=== PATIENT | female | born 1970 | race Hispanic/Latino ===

== ENCOUNTER 2019-08-13 18:05 | Emergency (ER) | payer MEDICARE, MEDICAID, OTHER | END 2019-08-13 19:00 | disposition home or self-care (01) | LOC: ERS 18:05 | DX: Z20.828 Contact with and (suspected) exposure to other viral communicable diseases (principal); J45.909 Unspecified asthma, uncomplicated; I10 Essential (primary) hypertension; E11.40 Type 2 diabetes mellitus with diabetic neuropathy, unspecified; Z79.84 Long term (current) use of oral hypoglycemic drugs; Z79.899 Other long term (current) drug therapy | CPT/HCPCS: 99283; U0003; 87635 ==

== ENCOUNTER 2020-12-10 00:32 | Observation (INO) | payer MEDICARE, MEDICAID ==
[2020-12-10] MEDS ORDERED: Aspirin Chewable 81 MG TAB ONE (01:04)
[2020-12-10 01:12] LABS: #Basophils 0.1 thou/uL (0.0-0.2); #Eosinphils 0.3 thou/uL (0.0-0.7); #Lymphocytes 3.8 thou/uL (1.20-3.40); #Monocytes 0.6 thou/uL (0.11-0.59); #Neutrophils 6.6 thou/uL (1.40-6.50); %Basophils 0.7 % (0.0-1.0); %Eosinophils 2.8 % (0.0-10.0); %Lymphocytes 33.4 % (21.0-51.0); %Monocytes 5.6 % (0.0-10.0); %Neutrophils 57.5 % (42.0-75.0); Hemoglobin 13.9 g/dL (12.0-16.0); Mean Corpuscular HGB CONC 34.9 g/dL (32.0-36.0); Mean Corpuscular Hemoglobin 32.5 pg (27.0-31.0); Mean Corpuscular Volume 93.2 fL (78.0-98.0); Mean Platelet Volume 9.5 fL (7.4-10.4); Platelet Count 303 thou/uL (130-400); RBC Distribution Width 11.9 % (11.5-14.5); Red Blood Cell (RBC) Count 4.26 mill/uL (4.20-5.40); White Blood Cell (WBC) Count 11.5 thou/uL (4.8-10.8)
[2020-12-10 01:33] LABS: ALT (SGPT) 24 U/L (8-55); AST (SGOT) 22 U/L (5-34); Alkaline Phosphatase 89 U/L (40-110); Anion Gap 17 mmol/L (10-20); BUN (Urea Nitrogen) 7 mg/dL (7.0-18.7); Bilirubin, Total 0.8 mg/dL (0.2-1.2); Calc. Creatinine Clearance 0 mL/min (70-130); Calcium 10.2 mg/dL (7.8-10.44); Carbon Dioxide 22 mmol/L (22-29); Chloride 94 mmol/L (98-107); Globulin 3.3 g/dL (2.4-3.5); Magnesium 1.4 mg/dL (1.6-2.6); Potassium 3.9 mmol/L (3.5-5.1); Protein, Total 7.3 g/dL (6.0-8.3); Sodium 129 mmol/L (136-145)
[2020-12-10 01:59] LABS: Glucose 622 mg/dL (70-105)
[2020-12-10] MEDS ORDERED: Magnesium 2 GM/50 ML BAG (IN WATER) ONE (02:17)
[2020-12-10] MEDS ORDERED: Insulin Regular 300 UNITS/3 ML VIAL ONE (02:17)
[2020-12-10] MEDS ORDERED: Ondansetron PF 4 MG/2 ML Vial IVP PRN (03:49)
[2020-12-10] MEDS ORDERED: Nitroglycerin 0.4 MG TAB (25 Tab Bottle) SL PRN ×2 (03:49→11:47)
[2020-12-10] MEDS ORDERED: Acetaminophen 325 MG TAB PO PRN (03:49)
[2020-12-10] MEDS ORDERED: Dextrose 50% Abboject 50 ML SYRINGE SLOW IVP PRN (03:49)
[2020-12-10] MEDS ORDERED: HumaLOG 300 UNITS/3 ML VIAL SC PRN ×2 (03:49)
[2020-12-10] MEDS ORDERED: Dextrose 5% in Water 1,000 ML IV PRN (03:49)
[2020-12-10 04:15] VITALS: BMI 31.4
[2020-12-10] MEDS: Sodium Chloride 0.9% 1,000 ML IV SCH ×2 (04:39→14:23)
[2020-12-10 04:56] LABS: #Basophils 0.1 thou/uL (0.0-0.2); #Eosinphils 0.2 thou/uL (0.0-0.7); #Monocytes 0.5 thou/uL (0.11-0.59); #Neutrophils 4.5 thou/uL (1.40-6.50); %Basophils 0.7 % (0.0-1.0); %Eosinophils 2.6 % (0.0-10.0); %Lymphocytes 42.5 % (21.0-51.0); %Monocytes 5.4 % (0.0-10.0); %Neutrophils 48.8 % (42.0-75.0); Hemoglobin 12.2 g/dL (12.0-16.0); Mean Corpuscular HGB CONC 34.2 g/dL (32.0-36.0); Mean Corpuscular Hemoglobin 31.4 pg (27.0-31.0); Mean Corpuscular Volume 91.8 fL (78.0-98.0); Mean Platelet Volume 9.1 fL (7.4-10.4); Platelet Count 257 thou/uL (130-400); RBC Distribution Width 11.9 % (11.5-14.5); Red Blood Cell (RBC) Count 3.88 mill/uL (4.20-5.40); White Blood Cell (WBC) Count 9.3 thou/uL (4.8-10.8)
[2020-12-10 04:59] LABS: Hemoglobin A1c 11.4 % (4.0-6.0)
[2020-12-10 05:24] LABS: Troponin I Less than 0.010 ng/mL (< 0.028)
[2020-12-10 05:48] LABS: Anion Gap 15 mmol/L (10-20); BUN (Urea Nitrogen) 6 mg/dL (7.0-18.7); Calc. Creatinine Clearance 114 mL/min (70-130); Calcium 9.3 mg/dL (7.8-10.44); Carbon Dioxide 22 mmol/L (22-29); Chloride 103 mmol/L (98-107); Glucose 337 mg/dL (70-105); Sodium 136 mmol/L (136-145)
[2020-12-10 07:50] LABS: Troponin I Less than 0.010 ng/mL (< 0.028)
[2020-12-10] MEDS ORDERED: Aspirin Chewable 81 MG TAB PO SCH (09:00)
[2020-12-10] MEDS ORDERED: Communication Order-Pharmacy FS SCH (10:30)
[2020-12-10] MEDS ORDERED: Midazolam HCl 2 mg/2 ml Vial ONE (11:04)
[2020-12-10] MEDS ORDERED: Fentanyl 100 MCG/2 ML VIAL ONE ×2 (11:04→11:54)
[2020-12-10] MEDS ORDERED: Sodium Chloride 0.9% 200 ML IV PRN (11:47)
[2020-12-10] MEDS ORDERED: Acetaminophen/Codeine 30-300mg Tablet PO PRN (11:47)
[2020-12-10 12:31] LABS: SARS-CoV-2 PCR by NAA Not Detected (NotDetected)
[2020-12-10 13:05] VITALS: TEMP 97.5
[2020-12-10 16:02] VITALS: BP 124/76
== END 2020-12-10 16:20 | disposition home or self-care (01) ==
LOC: ERS 00:32 → 2NO 02:59
PROVIDERS: ADMIT Internal Medicine; ATTEND Internal Medicine
PROC: 4A023N7 Measurement of Cardiac Sampling and Pressure, Left Heart, Percutaneous Approach (ICD-10-PCS; principal; 2020-12-10)
PROC: B2111ZZ Fluoroscopy of Multiple Coronary Arteries using Low Osmolar Contrast (ICD-10-PCS; 2020-12-10)
DX: I20.0 Unstable angina (principal); E11.65 Type 2 diabetes mellitus with hyperglycemia; E83.42 Hypomagnesemia; E87.1 Hypo-osmolality and hyponatremia; E11.42 Type 2 diabetes mellitus with diabetic polyneuropathy; I10 Essential (primary) hypertension; E78.5 Hyperlipidemia, unspecified; J45.909 Unspecified asthma, uncomplicated; M19.90 Unspecified osteoarthritis, unspecified site; E66.9 Obesity, unspecified; Z68.31 Body mass index [BMI] 31.0-31.9, adult; Z87.891 Personal history of nicotine dependence; Z91.11 Patient's noncompliance with dietary regimen; Z91.14 Patient's other noncompliance with medication regimen; Z79.4 Long term (current) use of insulin; Z79.82 Long term (current) use of aspirin; Z79.84 Long term (current) use of oral hypoglycemic drugs; Z79.899 Other long term (current) drug therapy; Z88.5 Allergy status to narcotic agent; Z20.822 Contact with and (suspected) exposure to COVID-19
CPT/HCPCS: 71045; 80048; 82962; 83036; 83735; 84484 ×2; 93005; 93458; 96365; 96375; 99285; G0378 ×2; U0003; U0005; 36415; 36416; 80053; 84443; 85025; 99152; 99153; J1815; J2250; J3010; J3475; J7050

== ENCOUNTER 2021-03-12 08:00 | Emergency (ER) | payer MEDICARE, MEDICAID ==
[2021-03-12] MEDS ORDERED: Ketorolac Tromethamine 30 MG/ML VIAL ONE (09:55)
[2021-03-12] MEDS ORDERED: Morphine 4 MG/ML VIAL ONE (09:55)
[2021-03-12] MEDS ORDERED: Ondansetron PF 4 MG/2 ML Vial ONE (09:56)
[2021-03-12 10:06] LABS: #Eosinphils 0.2 thou/uL (0.0-0.7); #Lymphocytes 1.2 thou/uL (1.20-3.40); #Monocytes 0.5 thou/uL (0.11-0.59); #Neutrophils 5.6 thou/uL (1.40-6.50); %Basophils 0.4 % (0.0-1.0); %Eosinophils 2.9 % (0.0-10.0); %Lymphocytes 15.5 % (21.0-51.0); %Monocytes 6.2 % (0.0-10.0); Hemoglobin 12.4 g/dL (12.0-16.0); Mean Corpuscular HGB CONC 34.9 g/dL (32.0-36.0); Mean Corpuscular Volume 88.6 fL (78.0-98.0); Mean Platelet Volume 9.4 fL (7.4-10.4); Platelet Count 234 thou/uL (130-400); RBC Distribution Width 11.8 % (11.5-14.5); Red Blood Cell (RBC) Count 3.99 mill/uL (4.20-5.40); White Blood Cell (WBC) Count 7.4 thou/uL (4.8-10.8)
[2021-03-12] MEDS ORDERED: Iopamidol-370 76% 500 ML 1 ML ONE (10:07)
[2021-03-12 10:10] LABS: BHCG - Serum Negative (NEGATIVE); Pregs Control Background? CLEAR/WHITE (CLR/WHITE); Pregs Control Bar Appear? YES (CONTROL BAR)
[2021-03-12 10:20] LABS: ALT (SGPT) 23 U/L (8-55); AST (SGOT) 30 U/L (5-34); Albumin 3.9 g/dL (3.5-5.0); Alkaline Phosphatase 93 U/L (40-110); Anion Gap 14 mmol/L (10-20); BUN (Urea Nitrogen) 6 mg/dL (7.0-18.7); Bilirubin, Total 0.8 mg/dL (0.2-1.2); Calc. Creatinine Clearance 0 mL/min (70-130); Calcium 10.1 mg/dL (7.8-10.44); Carbon Dioxide 26 mmol/L (22-29); Chloride 100 mmol/L (98-107); Globulin 3.3 g/dL (2.4-3.5); Glucose 310 mg/dL (70-105); Lipase 19 U/L (8-78); Magnesium 1.2 mg/dL (1.6-2.6); Potassium 3.8 mmol/L (3.5-5.1); Protein, Total 7.2 g/dL (6.0-8.3); Sodium 136 mmol/L (136-145)
== END 2021-03-12 12:06 | disposition home or self-care (01) ==
LOC: ERS 08:00
DX: M54.42 Lumbago with sciatica, left side (principal); M54.16 Radiculopathy, lumbar region
CPT/HCPCS: 74177; 80053; 83690; 83735; 84703; 85025; 96374; 96375; J1885; J2270; J2405; Q9967

== ENCOUNTER 2021-04-26 10:14 | Outpatient (CLI) | payer MEDICARE, MEDICAID | END 2021-04-26 10:15 | disposition home or self-care (01) | LOC: TBSIIMAG 10:14 | PROVIDERS: ATTEND Neurological Surgery | DX: M47.26 Other spondylosis with radiculopathy, lumbar region (principal) | CPT/HCPCS: 72148 ==

== ENCOUNTER 2022-04-30 21:10 | Observation (INO) | payer OTHER, MEDICAID ==
[~2022-04-30 21:10] MED LIST: Iopamidol-370 76% 500 ML 1 ML ONE
[2022-04-30] MEDS ORDERED: Ondansetron PF 4 MG/2 ML Vial ONE (22:05)
[2022-04-30 22:49] LABS: #Eosinphils 0.3 thou/uL (0.0-0.7); #Lymphocytes 0.8 thou/uL (1.20-3.40); #Monocytes 0.2 thou/uL (0.11-0.59); #Neutrophils 6.7 thou/uL (1.40-6.50); %Basophils 0.4 % (0.0-1.0); %Eosinophils 3.2 % (0.0-10.0); %Lymphocytes 10.1 % (21.0-51.0); %Monocytes 2.7 % (0.0-10.0); %Neutrophils 83.7 % (42.0-75.0); Hemoglobin 13.4 g/dL (12.0-16.0); Mean Corpuscular HGB CONC 34.4 g/dL (32.0-36.0); Mean Corpuscular Hemoglobin 31.6 pg (27.0-31.0); Mean Corpuscular Volume 91.8 fl (78.0-98.0); Mean Platelet Volume 9.6 fL (7.4-10.4); Platelet Count 215 10x3/uL (130-400); RBC Distribution Width 12.1 % (11.5-14.5); Red Blood Cell (RBC) Count 4.23 mill/uL (4.20-5.40)
[2022-04-30 22:54] LABS: BHCG - Serum Negative (NEGATIVE); Pregs Control Background? CLEAR/WHITE (CLR/WHITE); Pregs Control Bar Appear? YES (CONTROL BAR)
[2022-04-30 23:00] LABS: ALT (SGPT) 44 U/L (8-55); AST (SGOT) 58 U/L (5-34); Alkaline Phosphatase 108 U/L (40-110); Anion Gap 16 mmol/L (10-20); BUN (Urea Nitrogen) 23 mg/dL (7.0-18.7); Bilirubin, Total 1.5 mg/dL (0.2-1.2); Calc. Creatinine Clearance 0 mL/min (70-130); Calcium 9.5 mg/dL (7.8-10.44); Carbon Dioxide 23 mmol/L (22-29); Chloride 97 mmol/L (98-107); Estimated GFR 49; Globulin 3.6 g/dL (2.4-3.5); Lipase 81 U/L (8-78); Magnesium 1.5 mg/dL (1.6-2.6); Potassium 5.3 mmol/L (3.5-5.1); Protein, Total 7.6 g/dL (6.0-8.3); Sodium 131 mmol/L (136-145)
[2022-04-30 23:03] LABS: Glucose 591 mg/dL (70-105)
[2022-04-30 23:08] LABS: Bilirubin Negative (Negative); Blood, Urine Negative (Negative); Clarity Clear (Clear); Glucose, Urine (Dipstick) Greater than 1000 mg/dL (Negative); Ketone, Urine Negative (Negative); Leukocyte Negative Leu/uL (Negative); Nitrite Negative (Negative); Protein, Urine (Dipstick) Negative (Neg-Trace); Specific Gravity, Urine 1.027 (1.002-1.036); Urobilinogen Normal mg/dL (Less than 2)
[2022-04-30] MEDS ORDERED: Magnesium 2 GM/50 ML BAG (IN WATER) ONE (23:18)
[2022-04-30] MEDS ORDERED: Insulin Regular 300 UNITS/3 ML VIAL ONE (23:18)
[2022-05-01] MEDS ORDERED: Ondansetron PF 4 MG/2 ML Vial IVP PRN (00:30)
[2022-05-01] MEDS ORDERED: Dextrose 5% in Water 1,000 ML IV PRN (00:30)
[2022-05-01] MEDS ORDERED: Dextrose 50% Abboject 50 ML SYRINGE SLOW IVP PRN (00:30)
[2022-05-01] MEDS ORDERED: HumaLOG 300 UNITS/3 ML VIAL SC PRN (00:40)
[2022-05-01] MEDS ORDERED: Dicyclomine 10 MG CAP PO PRN (00:49)
[2022-05-01 01:25] LABS: SARS-CoV-2 NAA Rapid Test Not Detected (NotDetected)
[2022-05-01] MEDS: Lactated Ringer's 1,000 ML IV SCH ×5 (01:50→20:28)
[2022-05-01] MEDS ORDERED: Metoclopramide HCl 10 MG/2 ML VIAL ONE (03:14)
[2022-05-01 04:52] VITALS: BMI 33.6
[2022-05-01 06:52] LABS: ALT (SGPT) 37 U/L (8-55); AST (SGOT) 62 U/L (5-34); Albumin 2.7 g/dL (3.5-5.0); Alkaline Phosphatase 76 U/L (40-110); Anion Gap 11 mmol/L (10-20); BUN (Urea Nitrogen) 17 mg/dL (7.0-18.7); Bilirubin, Total 1.2 mg/dL (0.2-1.2); Calc. Creatinine Clearance 109 mL/min (70-130); Calcium 7.9 mg/dL (7.8-10.44); Carbon Dioxide 21 mmol/L (22-29); Chloride 106 mmol/L (98-107); Estimated GFR 88; Globulin 2.5 g/dL (2.4-3.5); Glucose 305 mg/dL (70-105); Potassium 4.4 mmol/L (3.5-5.1); Protein, Total 5.2 g/dL (6.0-8.3); Sodium 134 mmol/L (136-145)
[2022-05-01 08:44] LABS: #Eosinphils 0.2 thou/uL (0.0-0.7); #Lymphocytes 1.2 thou/uL (1.20-3.40); #Monocytes 0.3 thou/uL (0.11-0.59); #Neutrophils 2.9 thou/uL (1.40-6.50); %Basophils 0.2 % (0.0-1.0); %Eosinophils 4.5 % (0.0-10.0); %Neutrophils 62.3 % (42.0-75.0); Hemoglobin 9.7 g/dL (12.0-16.0); Mean Corpuscular HGB CONC 33.1 g/dL (32.0-36.0); Mean Corpuscular Hemoglobin 30.6 pg (27.0-31.0); Mean Corpuscular Volume 92.6 fl (78.0-98.0); Platelet Count 161 10x3/uL (130-400); Red Blood Cell (RBC) Count 3.15 mill/uL (4.20-5.40); White Blood Cell (WBC) Count 4.7 10x3/uL (4.8-10.8)
[2022-05-01] MEDS: HumuLIN 70/30 (300 UNITS/3 ML VIAL) SC SCH ×2 (09:27→18:24)
[2022-05-01] MEDS ORDERED: Non-Formulary Item 1 EACH (Dulaglutide [Trulicity] 1.5 MG/0.5 ML Pen.Injctr) SC SCH (09:45)
[2022-05-01] MEDS ORDERED: metFORMIN 500 MG TAB PO SCH ×2 (10:00→17:00)
[2022-05-01] MEDS ORDERED: Acetaminophen 500 MG TAB PO PRN (10:13)
[2022-05-01] MEDS: Acetaminophen 325 MG TAB PO PRN (11:19)
[2022-05-01] MEDS: Gabapentin 300 MG CAP PO SCH ×2 (15:01→20:27)
[2022-05-01] MEDS: HumaLOG 300 UNITS/3 ML VIAL SC PRN ×2 (15:03→18:39)
[2022-05-01] MEDS ORDERED: Acetaminophen 325 MG TAB PO SCH (17:30)
[2022-05-01] MEDS: metFORMIN 500 MG TAB PO SCH (18:26)
[2022-05-01] MEDS ORDERED: Montelukast Sodium 10 mg Tablet PO SCH (21:00)
[2022-05-01] MEDS ORDERED: Atorvastatin Calcium 10 MG TAB PO SCH (21:00)
[2022-05-02] MEDS: Lactated Ringer's 1,000 ML IV SCH (03:02)
[2022-05-02 05:50] LABS: Hemoglobin 9.4 g/dL (12.0-16.0); Mean Corpuscular HGB CONC 33.6 g/dL (32.0-36.0); Mean Corpuscular Hemoglobin 31.2 pg (27.0-31.0); Mean Corpuscular Volume 92.9 fl (78.0-98.0); Mean Platelet Volume 8.9 fL (7.4-10.4); Platelet Count 165 10x3/uL (130-400); Red Blood Cell (RBC) Count 3.03 mill/uL (4.20-5.40); White Blood Cell (WBC) Count 4.1 10x3/uL (4.8-10.8)
[2022-05-02 06:13] LABS: ALT (SGPT) 42 U/L (8-55); AST (SGOT) 54 U/L (5-34); Albumin 2.9 g/dL (3.5-5.0); Alkaline Phosphatase 93 U/L (40-110); Anion Gap 8 mmol/L (10-20); BUN (Urea Nitrogen) 9 mg/dL (7.0-18.7); Bilirubin, Total 0.6 mg/dL (0.2-1.2); Calc. Creatinine Clearance 136 mL/min (70-130); Calcium 8.7 mg/dL (7.8-10.44); Carbon Dioxide 25 mmol/L (22-29); Chloride 110 mmol/L (98-107); Estimated GFR 107; Globulin 2.6 g/dL (2.4-3.5); Glucose 107 mg/dL (70-105); Magnesium 1.4 mg/dL (1.6-2.6); Potassium 4.2 mmol/L (3.5-5.1); Protein, Total 5.5 g/dL (6.0-8.3); Sodium 139 mmol/L (136-145)
[2022-05-02] MEDS: HumuLIN 70/30 (300 UNITS/3 ML VIAL) SC SCH ×3 (07:36→16:08)
[2022-05-02 08:51] LABS: Eosinophils 4 % (0-10); Lymphocytes 57 % (21-51); MDiff Complete? YES; Monocytes 7 % (0-10); Neutrophil 32 % (42-75); Platelet Morphology Comment Appears Adequate; Polychromasia SLIGHT = 2-3 cells (100X) (0-2/hpf)
[2022-05-02] MEDS: metFORMIN 500 MG TAB PO SCH (08:58)
[2022-05-02] MEDS: Gabapentin 300 MG CAP PO SCH ×2 (08:58→16:02)
[2022-05-02] MEDS ORDERED: Aspirin 81 mg Enteric Coated Tablet PO SCH (09:00)
[2022-05-02] MEDS ORDERED: Magnesium Oxide 400 MG TAB PO SCH (09:00)
[2022-05-02] MEDS: Acetaminophen 325 MG TAB PO PRN (09:03)
[2022-05-02 16:08] VITALS: BP 139/78; TEMP 98.2
== END 2022-05-02 17:45 | disposition home or self-care (01) ==
LOC: ERS 21:10 → ERHOLD 05-01 00:09 → INTOOBSV 05-01 00:09 → NEURO 05-01 04:13
PROVIDERS: ADMIT Student in an Organized Health Care Education/Training Program; ATTEND Student in an Organized Health Care Education/Training Program
DX: K52.9 Noninfective gastroenteritis and colitis, unspecified (principal); E11.65 Type 2 diabetes mellitus with hyperglycemia; N17.9 Acute kidney failure, unspecified; E83.42 Hypomagnesemia; I10 Essential (primary) hypertension; I95.9 Hypotension, unspecified; E11.40 Type 2 diabetes mellitus with diabetic neuropathy, unspecified; H91.92 Unspecified hearing loss, left ear; G89.29 Other chronic pain; M54.9 Dorsalgia, unspecified; Z79.4 Long term (current) use of insulin; Z79.82 Long term (current) use of aspirin; Z79.84 Long term (current) use of oral hypoglycemic drugs; Z79.85 Long-term (current) use of injectable non-insulin antidiabetic drugs; Z79.899 Other long term (current) drug therapy; Z88.5 Allergy status to narcotic agent; Z20.822 Contact with and (suspected) exposure to COVID-19
CPT/HCPCS: 0240U; 74177; 80053 ×3; 81003; 82962 ×2; 83690; 83735 ×2; 83930; 84703; 85025 ×3; 93005; 96372 ×2; G0378 ×3; 36415; 36416; 51701; 96361; 96365; 96375; J1650; J1815; J2405; J2765; J3475; J7120; Q9967

== ENCOUNTER 2023-07-27 12:28 | Outpatient (CLI) | payer OTHER, MEDICAID | END 2023-07-27 12:29 | disposition home or self-care (01) | LOC: BICMRI 12:28 | PROVIDERS: ATTEND Family Medicine | DX: M50.121 Cervical disc disorder at C4-C5 level with radiculopathy (principal); M50.122 Cervical disc disorder at C5-C6 level with radiculopathy; M50.123 Cervical disc disorder at C6-C7 level with radiculopathy; M50.13 Cervical disc disorder with radiculopathy, cervicothoracic region | CPT/HCPCS: 72141 ==